=== PATIENT | male | born 1990 | race Two or more races ===

== ENCOUNTER 2020-10-27 21:48 | Emergency (ER) | payer OTHER ==
[~2020-10-27] VITALS: Ht 165.1 cm; Wt 98.7 kg
[2020-10-27 21:57] VITALS: BP 142/93
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
[2020-10-27] MEDS ORDERED: ONDANSETRON 2MG/ML, 2ML IVPush ONE (22:30)
[2020-10-27] MEDS ORDERED: MORPHINE SULFATE 4 MG/ML, 1ML IVPush PRN (22:30)
[2020-10-27] MEDS ORDERED: SODIUM CHLORIDE FLUSH 10ML SYR IVF ONE (22:30)
[2020-10-27] MEDS ORDERED: MORPHINE SULFATE 4 MG/ML, 1ML ONE (22:35)
[2020-10-27] MEDS ORDERED: ONDANSETRON 2MG/ML, 2ML ONE (22:35)
--- NOTE | 2020-10-27 23:32 | NUR ---
CT PENDING LAB/CREATINE.
[2020-10-27 23:45] LABS: BASOPHILS % (AUTO) 0 % (0-1); EOSINOPHILS % (AUTO) 1 % (1-7); LYMPHOCYTES % (AUTO) 12 % (22-44); MEAN CORPUSCULAR HEMOGLOBIN 29.1 pg (27.5-34.5); MEAN CORPUSCULAR HGB CONC 34.3 g/dL (33.2-36.2); MEAN PLATELET VOLUME 7.9 fL (7.4-10.4); MONOCYTES % (AUTO) 8 % (2-9); NEUTROPHILS % (AUTO) 79 % (42-75); PLATELET COUNT 265 x10^3/uL (130-400); RED BLOOD COUNT 5.35 x10^6/uL (4.38-5.82); RED CELL DISTRIBUTION WIDTH 14.2 % (9.4-14.8)
[2020-10-27 23:56] LABS: ANION GAP 6 mmol/L (5-15); CALCIUM 8.4 mg/dL (8.5-10.1); CHLORIDE 108 mmol/L (98-107); CREATININE 0.92 mg/dL (0.7-1.3)
--- NOTE | 2020-10-27 23:57 | NUR ---
pt at ct
--- NOTE | 2020-10-28 00:05 | NUR ---
pt back from ct, pt resting on gurney, denies needs at this time.
[2020-10-28] MEDS ORDERED: OMNIPAQUE 350 MG/ML, 100ML BOTTLE ONE (00:30)
[2020-10-28] MEDS ORDERED: HYDROcodone/APAP 5/325 TABLET ONE (01:49)
--- NOTE | 2020-10-28 01:56 | NUR ---
PT ABLE DRINK WATER AND TAKE PO PAIN MEDICATIONS WITHOUT ANY COMPLICATIONS. PT RESTING ON GURNEY, DENIES NEEDS AT THIS TIME.
[2020-10-28] MEDS ORDERED: HYDROcodone/APAP 5/325 TABLET PO ONE (02:00)
--- NOTE | 2020-10-28 02:58 | NUR ---
Patient given discharge instructions and they have confirmed that they understand the instructions. Patient ambulatory with steady gait.
== END 2020-10-28 03:00 | disposition home or self-care (01) ==
LOC: ED 23:59
DX: S02.2XXA Fracture of nasal bones, initial encounter for closed fracture (principal); S00.31XA Abrasion of nose, initial encounter; S09.90XA Unspecified injury of head, initial encounter; R07.89 Other chest pain; M54.2 Cervicalgia; Y04.8XXA Assault by other bodily force, initial encounter; Y93.89 Activity, other specified; Y92.89 Other specified places as the place of occurrence of the external cause; Y99.8 Other external cause status
CPT/HCPCS: 36415; 70450; 70486; 71260; 72125; 72128; 72131; 73130; 74177; 80048; 82040; 85025; 96374; 96375; 99285; J2270; J2405; Q9967; 99283